=== PATIENT | male | born 2000 | race Caucasian/White ===

== ENCOUNTER 2019-03-27 13:02 | Emergency (ER) | payer SELFPAY ==
[~2019-03-27] VITALS: Ht 177.8 cm; Wt 75.7 kg
--- NOTE | 2019-03-27 13:18 | NUR ---
SOB, POSS PANIC ATTACK. PATIENT A/OX3, NOTED WITH RAPID BREATHING BUT O2 SAT IN ROOM AIR SHOWS 100%. PATIENT C/O MILD CHEST PAIN DURING INSPIRATION. NEEDS ATTENDED, KEPT PATIENT COMFORTABLE, ATTACHED TO THE [employer], CHANGED INTO GOWN. WAITING FOR MD COHN.
[2019-03-27] MEDS ORDERED: LORAZEPAM 1 MG TABLET PO ONE (13:30)
[2019-03-27] MEDS ORDERED: LORAZEPAM 1 MG TABLET ONE (13:32)
[2019-03-27 13:47] LABS: BASOPHILS % (AUTO) 0.5 % (0.0-2.0); EOSINOPHILS % (AUTO) 0.6 % (0.0-6.0); HEMATOCRIT 50 % (39-51); HEMOGLOBIN 17.1 g/dL (13.5-17.5); LYMPHOCYTES # (AUTO) 2.7 /CMM (0.8-4.8); MEAN CORPUSCULAR HGB CONC 35 g/dl (31.0-36.0); MEAN CORPUSCULAR VOLUME 88 fL (80-96); MONOCYTES # (AUTO) 0.6 /CMM (0.1-1.30); MONOCYTES % (AUTO) 8.2 % (2.0-12.0); NEUTROPHILS # (AUTO) 3.8 /CMM (1.8-8.9); NEUTROPHILS % (AUTO) 52.7 % (43.0-81.0); PLATELET COUNT (AUTO) 233 /CMM (150-450); RED BLOOD CELL COUNT(AUTO) 5.64 MIL/uL (4.5-6.0); WHITE BLOOD COUNT (AUTO) 7.1 K/uL (4.3-11.0)
[2019-03-27 13:58] LABS: ABG BASE EXCESS -0.8 mmol/L; ABG OXYGEN SATURATION 80.1 % (92.0-98.5); ABG PCO2 13.3 mmHg (35.0-45.0); ABG PH 7.676 (7.350-7.450); ABG PO2 32.8 mmHg (75.0-100.0); COHb 0.7 % (0.5-1.5); MetHb 0.4 % (0.0-1.5); O2Hb 79.2 % (94.0-97.0); SITE, ABG LEFT ARM; VENT MODE, BG ROOM AIR
[2019-03-27] MEDS ORDERED: IV NS 0.9% 1,000 ML BAG IV ONE ×2 (14:00→14:30)
[2019-03-27 14:03] LABS: CALCIUM, SERUM 9.9 mg/dL (8.5-10.1); CARBON DIOXIDE 18 mmol/L (21-32); CHLORIDE 100 mmol/L (98-107); CREATININE 1.1 mg/dL (0.6-1.3); GLUCOSE 196 mg/dL (74-106); POTASSIUM 2.9 mmol/L (3.5-5.1); SODIUM SERUM 139 mmol/L (136-145); UREA NITROGEN, BLOOD 8 mg/dL (7-18)
[2019-03-27] MEDS ORDERED: POTASSIUM CHLORIDE 20 MEQ TAB.PRT.SR PO ONE (14:30)
[2019-03-27 14:47] LABS: APPEARANCE,URINE Clear (CLEAR); BILIRUBIN,URINE Negative (NEGATIVE); BLOOD, URINE Small Ery/uL (NEGATIVE); COLOR,URINE Yellow (YELLOW); KETONES,URINE 15 (NEGATIVE); LEUKOCYTE ESTERASE ,URINE Negative (NEGATIVE); NITRITE, URINE Negative (NEGATIVE); PROTEIN,URINE Negative (NEGATIVE); UGLUCOSE Negative (NEGATIVE); UROBILINOGEN,URINE 0.2 EU/dL (0.2)
[2019-03-27 14:48] LABS: WBC,URINE 0-2 /HPF (0-3)
[2019-03-27 14:49] LABS: BACTERIA,URINE Rare /HPF (None Seen); SQUAMOUS EPITHELIAL CELL,UR Rare /HPF (None Seen)
[2019-03-27] MEDS ORDERED: CT SWABBABLE VALVE TRANS SET 1 EA INFUS.SET MC ONE (14:56)
[2019-03-27] MEDS ORDERED: IOHEXOL-350 100 ML VIAL IV ONE (14:56)
[2019-03-27] MEDS ORDERED: IV NS 0.9% 250 ML IV ONE (14:56)
--- NOTE | 2019-03-27 15:00 | NUR ---
PATIENT RESTING IN BED, FRIENDS AT BEDSIDE, NAD, VSS.
[2019-03-27 16:48] LABS: CALCIUM, SERUM 8.6 mg/dL (8.5-10.1); CREATININE 0.8 mg/dL (0.6-1.3); POTASSIUM 4.1 mmol/L (3.5-5.1)
--- NOTE | 2019-03-27 17:40 | NUR ---
Patient a/ox4, breathing even and unlabored, no sob noted, Vitals stable. IV removed. Catheter intact and site benign. Pressure and 4x4 applied to site. No bleeding noted. Ambulatory with a steady gait. Patient discharged to home in stable condition. Written and verbal after care instructions given. Patient verbalizes understanding of instruction.
[2019-03-27 17:47] VITALS: BP 138/53
== END 2019-03-27 17:47 | disposition home or self-care (01) ==
LOC: ER 13:02
DX: E87.6 Hypokalemia (principal); E10.9 Type 1 diabetes mellitus without complications
CPT/HCPCS: 36415; 36600; 71045; 71275; 80048 ×2; 81001; 82010; 85025; 93005; 99284; J7030 ×2; J7050; Q9967; 81000-TC